=== PATIENT | female | born 1975 | race Caucasian/White ===

== ENCOUNTER 2016-11-15 16:14 | Inpatient (IN) | payer MEDICAID ==
[~2016-11-15] VITALS: Ht 154.9 cm; Wt 75.0 kg
[~2016-11-15 16:14] MED LIST: NOCURR
[2016-11-15 17:25] LABS: BASOPHILS % (AUTO) 0.5 % (0.0-2.0); EOSINOPHILS % (AUTO) 2.9 % (1.0-6.0); HEMATOCRIT 40.2 % (36-46); HEMOGLOBIN 13.3 g/dL (12.0-16.0); LYMPHOCYTES # (AUTO) 2.8 K/uL (1.0-4.8); LYMPHOCYTES % (AUTO) 30.5 % (22.0-44.0); MEAN CORPUSCULAR HEMOGLOBIN 27.4 pg (26.0-34.0); MEAN CORPUSCULAR VOLUME 83 fL (80-100); MONOCYTES # (AUTO) 0.5 K/uL (0.1-1.0); MONOCYTES % (AUTO) 5.8 % (2.0-9.0); NEUTROPHILS # (AUTO) 5.6 K/uL (1.8-7.7); NEUTROPHILS % (AUTO) 60.3 % (40.0-70.0); PLATELET COUNT (AUTO) 243 K/uL (150-450); RED BLOOD CELL COUNT(AUTO) 4.84 MIL/uL (4.00-5.20); WHITE BLOOD COUNT (AUTO) 9.3 K/uL (4.5-11.0)
[2016-11-15 17:36] LABS: ANION GAP 7 mmol/L (8-16); CALCIUM, TOTAL 8.5 mg/dL (8.8-10.5); CARBON DIOXIDE 29 mmol/L (22-29); CHLORIDE 102 mmol/L (98-107); CREATININE 0.58 mg/dL (0.60-1.30); GLOMERULAR FILTR. RATE CALC > 60 mL/min (>60); POTASSIUM 3.9 mmol/L (3.5-5.1); SODIUM SERUM 138 mmol/L (136-145); UREA NITROGEN, BLOOD 10 mg/dL (7-18)
[2016-11-15 17:41] LABS: ALANINE AMINOTRANSFERASE 21 U/L (12-78); ALBUMIN 3.6 g/dL (3.4-5.0); ASPARTATE AMINOTRANSFERASE 19 U/L (15-37); BILIRUBIN,TOTAL 0.3 mg/dL (0.1-1.0); TOTAL PROTEIN, SERUM 7.9 g/dL (6.4-8.2)
[2016-11-15] MEDS ORDERED: HALOPERIDOL 5 MG TABLET PO ONE (17:45)
[2016-11-15] MEDS ORDERED: DiphenhydrAMINE HCL 50 MG CAPSULE PO ONE (17:45)
[2016-11-15] MEDS ORDERED: LORazepam 2 MG TABLET PO ONE (17:45)
[2016-11-15] MEDS ORDERED: OLANZapine 5 MG RAPDIS TABLET PO PRN (18:00)
[2016-11-15] MEDS ORDERED: HydrOXYzine PAMOATE 50 MG CAPSULE PO PRN (18:00)
[2016-11-15] MEDS ORDERED: GuaiFENesin/D-METHORPHAN [SUGAR-FREE] 200-20MG/10 ML SYRUP UDCUP PO PRN (18:00)
[2016-11-15] MEDS ORDERED: ZOLPIDEM TARTRATE 10 MG TABLET PO PRN (18:00)
[2016-11-15] MEDS ORDERED: MAG HYDROX/AL HYDROX/SIMETH ES 30 ML SUSPENSION UDCUP PO PRN (18:00)
[2016-11-15] MEDS ORDERED: TUBERCULIN, PURIFIED PROTEIN DERIVATIVE 5 TU/0.1 ML SYG ID ONE (18:00)
[2016-11-15] MEDS ORDERED: MAGNESIUM HYDROXIDE SUSPENSION 30 ML UDCUP PO PRN (18:00)
[2016-11-15] MEDS ORDERED: PROMETHAZINE HCL 25 MG TABLET PO PRN (18:00)
[2016-11-15] MEDS ORDERED: ACETAMINOPHEN 325 MG TABLET PO PRN (18:00)
[2016-11-15] MEDS ORDERED: LOPERAMIDE HCL 2 MG CAPSULE PO PRN (18:00)
[2016-11-15 18:15] LABS: APPEARANCE,URINE CLEAR (CLEAR); GLUCOSE, URINE (UA) NEGATIVE (NEGATIVE); KETONES,URINE NEGATIVE (NEGATIVE); LEUKOCYTE ESTERASE ,URINE NEGATIVE (NEGATIVE); OCCULT BLOOD,URINE TRACE (NEGATIVE); PH,URINE 7.5 (5.0-8.0); PROTEIN,URINE NEGATIVE (NEGATIVE)
[2016-11-15 18:18] LABS: ADD UA MICROSCOPIC YES
[2016-11-15 18:48] LABS: SQUAMOUS EPITHELIAL CELL,UR Few /LPF (None Seen)
[2016-11-15 18:49] LABS: RBC,URINE 0-2 /HPF (0-2); WBC,URINE 0-2 /HPF (0-5)
[2016-11-15] MEDS ORDERED: INFLUENZA VIRUS VACCINE QVS 2016-17 (3YR+)/PF 60 MCG/0.5 ML SYRINGE IM ONE (20:45)
[2016-11-15 20:52] VITALS: BP 107/70
[2016-11-15] MEDS: THIAMINE HCL 100 MG TABLET PO SCH (20:53)
[2016-11-15] MEDS ORDERED: OLANZapine 5 MG RAPDIS TABLET PO SCH (21:00)
[2016-11-15] MEDS ORDERED: PNEUMOCOCCAL VACCINE POLYVALENT 0.5 ML VIAL [PPSV23] IM ONE (21:15)
[2016-11-16 08:18] LABS: BASOPHILS % (AUTO) 0.4 % (0.0-2.0); EOSINOPHILS % (AUTO) 3.7 % (1.0-6.0); HEMATOCRIT 36.3 % (36-46); HEMOGLOBIN 12.1 g/dL (12.0-16.0); LYMPHOCYTES # (AUTO) 1.7 K/uL (1.0-4.8); LYMPHOCYTES % (AUTO) 26.7 % (22.0-44.0); MEAN CORPUSCULAR HEMOGLOBIN 27.5 pg (26.0-34.0); MEAN CORPUSCULAR HGB CONC 33.3 G/dL (31.0-37.0); MEAN CORPUSCULAR VOLUME 83 fL (80-100); MONOCYTES # (AUTO) 0.4 K/uL (0.1-1.0); MONOCYTES % (AUTO) 6.9 % (2.0-9.0); NEUTROPHILS # (AUTO) 3.9 K/uL (1.8-7.7); NEUTROPHILS % (AUTO) 62.3 % (40.0-70.0); PLATELET COUNT (AUTO) 209 K/uL (150-450); RED CELL DISTRIBUTION WIDTH 13.2 % (11.5-14.5); WHITE BLOOD COUNT (AUTO) 6.2 K/uL (4.5-11.0)
[2016-11-16 08:36] LABS: HEMOGLOBIN A1C 5.4 % (4.5-6.2)
[2016-11-16 08:57] LABS: ALANINE AMINOTRANSFERASE 18 U/L (12-78); ALBUMIN 2.9 g/dL (3.4-5.0); ANION GAP 7 mmol/L (8-16); ASPARTATE AMINOTRANSFERASE 17 U/L (15-37); BILIRUBIN,TOTAL 0.5 mg/dL (0.1-1.0); CALCIUM, TOTAL 8.3 mg/dL (8.8-10.5); CARBON DIOXIDE 26 mmol/L (22-29); CHLORIDE 106 mmol/L (98-107); CHOL/HDL RATIO 2.8 (3.9-5.7); GLOMERULAR FILTR. RATE CALC > 60 mL/min (>60); POTASSIUM 4.2 mmol/L (3.5-5.1); SODIUM SERUM 139 mmol/L (136-145); THYROID STIMULATING HORMONE 0.59 uIU/mL (0.36-3.74); TOTAL PROTEIN, SERUM 6.5 g/dL (6.4-8.2); UREA NITROGEN, BLOOD 13 mg/dL (7-18)
[2016-11-16 09:06] VITALS: BP 100/58
[2016-11-16] MEDS ORDERED: IBUPROFEN 400 MG TABLET PO PRN (09:45)
[2016-11-16] MEDS ORDERED: ACETAMINOPHEN 325 MG TABLET PO PRN (09:45)
[2016-11-16] MEDS: MULTIVITAMINS WITH MINERALS, THERAPEUTIC TABLET PO SCH (10:04)
[2016-11-16] MEDS: FOLIC ACID 1 MG TABLET PO SCH (10:04)
[2016-11-16] MEDS: THIAMINE HCL 100 MG TABLET PO SCH ×2 (10:04→17:21)
[2016-11-16 16:11] VITALS: BP 138/66
[2016-11-16] MEDS: LORazepam 2 MG TABLET PO PRN (17:21)
[2016-11-16] MEDS ORDERED: PALIPERIDONE 6 MG ER TABLET PO SCH (21:00)
[2016-11-16] MEDS: PALIPERIDONE PALMITATE 234 MG/1.5 ML SYRINGE IM ONE (21:50)
[2016-11-17 06:25] VITALS: BP 136/62
[2016-11-17] MEDS: NALTREXONE HCL 50 MG TABLET PO SCH (08:16)
[2016-11-17] MEDS: FOLIC ACID 1 MG TABLET PO SCH (08:16)
[2016-11-17] MEDS: THIAMINE HCL 100 MG TABLET PO SCH ×2 (08:16→16:06)
[2016-11-17] MEDS: MULTIVITAMINS WITH MINERALS, THERAPEUTIC TABLET PO SCH (08:16)
[2016-11-17 08:34] LABS: HEMOGLOBIN A1C 5.2 % (4.5-6.2)
[2016-11-17 08:39] LABS: CHOL/HDL RATIO 2.9 (3.9-5.7); THYROID STIMULATING HORMONE 0.26 uIU/mL (0.36-3.74)
[2016-11-17 08:41] VITALS: BP 148/94
[2016-11-17] MEDS: PALIPERIDONE PALMITATE 234 MG/1.5 ML SYRINGE IM ONE (09:17)
[2016-11-17 16:15] VITALS: BP 112/60
[2016-11-17] MEDS: LORazepam 2 MG TABLET PO PRN (16:58)
[2016-11-17] MEDS: DOXYCYCLINE 100 MG CAPSULE PO SCH (17:40)
[2016-11-18 06:56] VITALS: BP 104/64
[2016-11-18 08:40] VITALS: BP 100/56
[2016-11-18] MEDS: FOLIC ACID 1 MG TABLET PO SCH (09:21)
[2016-11-18] MEDS: MULTIVITAMINS WITH MINERALS, THERAPEUTIC TABLET PO SCH (09:22)
[2016-11-18] MEDS: NALTREXONE HCL 50 MG TABLET PO SCH (09:22)
[2016-11-18] MEDS: THIAMINE HCL 100 MG TABLET PO SCH ×2 (09:22→15:59)
[2016-11-18] MEDS: DOXYCYCLINE 100 MG CAPSULE PO SCH ×2 (09:22→15:59)
[2016-11-18 16:02] VITALS: BP 108/58
[2016-11-19 07:11] VITALS: BP 105/60
[2016-11-19] MEDS: DOXYCYCLINE 100 MG CAPSULE PO SCH ×2 (08:19→16:36)
[2016-11-19] MEDS: NALTREXONE HCL 50 MG TABLET PO SCH (08:19)
[2016-11-19] MEDS: MULTIVITAMINS WITH MINERALS, THERAPEUTIC TABLET PO SCH (08:19)
[2016-11-19] MEDS: FOLIC ACID 1 MG TABLET PO SCH (08:19)
[2016-11-19] MEDS: THIAMINE HCL 100 MG TABLET PO SCH ×2 (08:19→16:36)
[2016-11-19 08:23] VITALS: BP 110/69
[2016-11-19] MEDS: LORazepam 2 MG TABLET PO PRN ×2 (08:30→16:36)
[2016-11-19 16:16] VITALS: BP 111/65
[2016-11-20 07:20] VITALS: BP 112/69
[2016-11-20 08:14] VITALS: BP 100/59
[2016-11-20] MEDS: NALTREXONE HCL 50 MG TABLET PO SCH (08:58)
[2016-11-20] MEDS: DOXYCYCLINE 100 MG CAPSULE PO SCH ×2 (08:58→16:40)
[2016-11-20] MEDS: MULTIVITAMINS WITH MINERALS, THERAPEUTIC TABLET PO SCH (08:58)
[2016-11-20] MEDS: LORazepam 2 MG TABLET PO PRN ×2 (08:58→16:40)
[2016-11-20] MEDS: THIAMINE HCL 100 MG TABLET PO SCH ×2 (08:58→16:40)
[2016-11-20] MEDS: FOLIC ACID 1 MG TABLET PO SCH (08:58)
[2016-11-20] MEDS: PALIPERIDONE 3 MG ER TABLET PO PRN ×2 (09:08→16:40)
[2016-11-20 17:06] VITALS: BP 93/55
[2016-11-21 07:00] VITALS: BP 100/61
[2016-11-21] MEDS: DOXYCYCLINE 100 MG CAPSULE PO SCH ×2 (08:11→16:04)
[2016-11-21] MEDS: FOLIC ACID 1 MG TABLET PO SCH (08:11)
[2016-11-21] MEDS: NALTREXONE HCL 50 MG TABLET PO SCH (08:11)
[2016-11-21] MEDS: THIAMINE HCL 100 MG TABLET PO SCH ×2 (08:11→16:04)
[2016-11-21] MEDS: MULTIVITAMINS WITH MINERALS, THERAPEUTIC TABLET PO SCH (08:12)
[2016-11-21] MEDS: LORazepam 2 MG TABLET PO PRN ×2 (08:12→16:04)
[2016-11-21 08:14] VITALS: BP 100/56
[2016-11-21] MEDS ORDERED: PALIPERIDONE PALMITATE 156 MG/ML SYRINGE IM ONE (09:00)
[2016-11-21 16:41] VITALS: BP 102/64
[2016-11-22 05:56] VITALS: BP 101/63
[2016-11-22] MEDS: DOXYCYCLINE 100 MG CAPSULE PO SCH ×2 (08:23→17:11)
[2016-11-22] MEDS: MULTIVITAMINS WITH MINERALS, THERAPEUTIC TABLET PO SCH (08:23)
[2016-11-22] MEDS: THIAMINE HCL 100 MG TABLET PO SCH ×2 (08:23→17:11)
[2016-11-22] MEDS: FOLIC ACID 1 MG TABLET PO SCH (08:23)
[2016-11-22] MEDS: NALTREXONE HCL 50 MG TABLET PO SCH (08:23)
[2016-11-22 09:26] VITALS: BP 102/61
[2016-11-22 16:14] VITALS: BP 111/56
[2016-11-22] MEDS: LORazepam 2 MG TABLET PO PRN (17:11)
[2016-11-23 07:08] VITALS: BP 121/65
[2016-11-23] MEDS: DOXYCYCLINE 100 MG CAPSULE PO SCH ×2 (08:34→16:48)
[2016-11-23] MEDS: MULTIVITAMINS WITH MINERALS, THERAPEUTIC TABLET PO SCH (08:34)
[2016-11-23] MEDS: NALTREXONE HCL 50 MG TABLET PO SCH (08:34)
[2016-11-23] MEDS: LORazepam 2 MG TABLET PO PRN (08:34)
[2016-11-23] MEDS: THIAMINE HCL 100 MG TABLET PO SCH ×2 (08:34→16:48)
[2016-11-23] MEDS: FOLIC ACID 1 MG TABLET PO SCH (08:34)
[2016-11-23] MEDS: PALIPERIDONE 3 MG ER TABLET PO PRN (08:38)
[2016-11-23 16:18] VITALS: BP 102/62
[2016-11-24 06:00] VITALS: BP 100/64
[2016-11-24] MEDS: MULTIVITAMINS WITH MINERALS, THERAPEUTIC TABLET PO SCH (08:34)
[2016-11-24] MEDS: FOLIC ACID 1 MG TABLET PO SCH (08:34)
[2016-11-24] MEDS: THIAMINE HCL 100 MG TABLET PO SCH ×2 (08:34→16:40)
[2016-11-24] MEDS: NALTREXONE HCL 50 MG TABLET PO SCH (08:34)
[2016-11-24] MEDS: DOXYCYCLINE 100 MG CAPSULE PO SCH ×2 (08:34→16:40)
[2016-11-24 08:39] VITALS: BP 122/69
[2016-11-24] MEDS: LORazepam 2 MG TABLET PO PRN (08:39)
[2016-11-24] MEDS: PALIPERIDONE 3 MG ER TABLET PO PRN (08:39)
[2016-11-24 16:10] VITALS: BP 114/58
[2016-11-25 06:41] VITALS: BP 102/64
[2016-11-25] MEDS: FOLIC ACID 1 MG TABLET PO SCH (08:05)
[2016-11-25] MEDS: MULTIVITAMINS WITH MINERALS, THERAPEUTIC TABLET PO SCH (08:05)
[2016-11-25] MEDS: DOXYCYCLINE 100 MG CAPSULE PO SCH ×2 (08:05→16:32)
[2016-11-25] MEDS: THIAMINE HCL 100 MG TABLET PO SCH (08:06)
[2016-11-25] MEDS: NALTREXONE HCL 50 MG TABLET PO SCH (08:06)
[2016-11-25] MEDS: LORazepam 2 MG TABLET PO PRN (08:10)
[2016-11-25] MEDS: PALIPERIDONE 3 MG ER TABLET PO PRN (08:10)
[2016-11-25 08:37] VITALS: BP 111/67
[2016-11-25] MEDS ORDERED: NALT50 PO (13:39)
[2016-11-25] MEDS ORDERED: PALI234D IM (13:39)
[2016-11-25 16:12] VITALS: BP 111/65
[2016-11-26 07:06] VITALS: BP 115/69
[2016-11-26] MEDS ORDERED: NALT50TA10 PO (07:30)
[2016-11-26] MEDS ORDERED: DOXY100C PO (07:30)
[2016-11-26] MEDS: NALTREXONE HCL 50 MG TABLET PO SCH (08:06)
[2016-11-26] MEDS: DOXYCYCLINE 100 MG CAPSULE PO SCH (08:06)
[2016-11-26] MEDS: MULTIVITAMINS WITH MINERALS, THERAPEUTIC TABLET PO SCH (08:06)
[2016-11-26] MEDS: LORazepam 2 MG TABLET PO PRN (08:09)
[2016-11-26 08:58] VITALS: BP 100/63
== END 2016-11-26 13:30 | disposition home or self-care (01) | DRG 751 ==
LOC: EMS 16:15 → B3A 19:31
PROVIDERS: ADMIT Psychiatry & Neurology Psychiatry; ATTEND Psychiatry & Neurology Psychiatry
DX: F29 Unspecified psychosis not due to a substance or known physiological condition (principal); R45.851 Suicidal ideations; F25.0 Schizoaffective disorder, bipolar type; I10 Essential (primary) hypertension; F15.90 Other stimulant use, unspecified, uncomplicated; Z88.0 Allergy status to penicillin; Z59.0 Homelessness; Z91.14 Patient's other noncompliance with medication regimen; Z28.21 Immunization not carried out because of patient refusal
CPT/HCPCS: 83036; 84439; 84443; 86592; 86780; 99285; A0429; G0480